=== PATIENT | female | born 1990 | race Caucasian/White ===

== ENCOUNTER → 2020-03-26 | Outpatient (CLI) | payer OTHER ==
[2020-03-26 10:40] LABS: HEMOGLOBIN 13.5 gm/dL (12.0-15.0); MCH 29.8 pg (26.0-34.0); MCHC 33.8 g/dL (28.0-37.0); RBC 4.55 mil/uL (4.20-5.00); RDW 13.9 % (10.5-14.5); WBC 6.6 thou/uL (4.0-11.0)
[2020-03-26 10:59] LABS: ALBUMIN 4.4 g/dL (3.4-5.0); ANION GAP 7 mmol/L (7-16); BUN 11 mg/dL (7-18); CALCIUM 9.3 mg/dL (8.5-10.1); CHLORIDE 105 mmol/L (98-107); CHOLESTEROL 197 mg/dL (<200); CO2 28 mmol/L (21-32); GLUCOSE 104 mg/dL (74-106); HDL CHOLESTEROL 56 mg/dL (>40); LDL CHOLESTEROL 133 mg/dL (<100); POTASSIUM 3.7 mmol/L (3.5-5.1); SGOT 11 U/L (15-37); SGPT 14 U/L (30-65); SODIUM 140 mmol/L (136-145); TC:HDL 3.5 Ratio (Not establshd); TOTAL BILIRUBIN 0.6 mg/dL (0.2-1.0); TOTAL PROTEIN 7.5 g/dL (6.4-8.2); TRIGLYCERIDE 41 mg/dL (<150); VLDL 8 mg/dL (<40)
== END ==
LOC: LAB 10:03
PROVIDERS: ATTEND Family Medicine
DX: E78.5 Hyperlipidemia, unspecified (principal)

== ENCOUNTER → 2020-06-30 | Outpatient (CLI) | payer OTHER | LOC: LAB 09:19 | PROVIDERS: ATTEND Family Medicine | DX: J02.9 Acute pharyngitis, unspecified (principal); R09.81 Nasal congestion; Z20.822 Contact with and (suspected) exposure to COVID-19 ==